=== PATIENT | female | born 1970 | race Caucasian/White ===

== ENCOUNTER 2018-09-16 21:29 | Emergency (ER) | payer OTHER, SELFPAY ==
--- OUTSIDE RECORDS SUMMARY | 2018-09-16 21:32 | XMS REPORT | Clinical Summary ---
:1970 Author Organization [facility] Address [address] [place] [address] Care Team Providers Name Role Phone Himanshu Primary Care Provider Allergies No Known Allergies Medications Medication Sig Dispensed Refills Start Date End Date Status aspirin 325 MG EC Take 325 mg by 0 Active tabletIndications: mouth daily. myocardial infarction prevention Active Problems Problem Noted Date Atrial fibrillation with rapid ventricular response 07/27/2016 Family History Medical History Relation Name Comments Depression Daughter Drug abuse Father Hearing loss Father Heart disease Father Depression Maternal Grandmother Heart disease Mother Miscarriages / Stillbirths Mother Cancer Paternal Aunt Heart disease Paternal Grandmother Cancer Paternal Uncle Depression Paternal Uncle Relation Name Status Comments Daughter Father Maternal Grandmother Mother Paternal Aunt Paternal Grandmother Paternal Uncle Social History Tobacco Use Types Packs/Day Years Used Date Former Smoker Comments: casual smoker 20+ years ago Alcohol Use Drinks/Week oz/Week Comments No Sex Assigned at Date Recorded Not on file Job Start Date Occupation Industry Not on file Not on file Not on file Travel History Travel Start Travel End No recent travel history available. Last Filed Vital Signs Not on file Plan of Treatment Not on file Results Not on fileafter 09/15/2017 Insurance Payer Benefit Plan / Group Subscriber ID Type Phone Address [facility] xxxxxxxxx
[2018-09-16] MEDS ORDERED: cloNIDine HCl 0.1 MG TAB ONE (22:21)
--- NOTE | 2018-09-16 23:49 | ER ---
Nurse's Notes [facility] Name: Holli Desir Age: 47 yrs Sex: Female : 1970 Arrival Date: 09/16/2018 Time: 21:31 Bed 8 Private MD: Addy Reyes Diagnosis: Headache;Otitis media, unspecified, left ear;Essential (primary) hypertension Presentation: 09/16 22:04 Presenting complaint: Patient states: left ear pain, pt c/o pain and redness behind ak1 left ear. Transition of care: patient was not received from another setting of care. Onset of symptoms is unknown. Risk Assessment: Do you want to hurt yourself or someone else? Patient reports no desire to harm self or others. Initial Sepsis Screen: Does the patient meet any 2 criteria? No. Patient's initial sepsis screen is negative. Does the patient have a suspected source of infection? No. Patient's initial sepsis screen is negative. Care prior to arrival: None. 22:04 Method Of Arrival: Ambulatory ak1 22:04 Acuity: ROHINI 4 ak1 Triage Assessment: 22:06 General: Appears uncomfortable, obese, Behavior is calm, cooperative, anxious. Pain: ak1 Complains of pain in left ear. EENT: Reports pain in left ear. Neuro: No deficits noted. Cardiovascular: No deficits noted. Respiratory: No deficits noted. GI: No signs and/or symptoms were reported involving the gastrointestinal system. : No signs and/or symptoms were reported regarding the genitourinary system. Derm: No signs and/or symptoms reported regarding the dermatologic system. Musculoskeletal: No signs and/or symptoms reported regarding the musculoskeletal system. 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 - Social history:: Smoking status: Patient/guardian denies using tobacco. - Ebola Screening: : No symptoms or risks identified at this time. Screenin:07 Abuse screen: Denies threats or abuse. Denies injuries from another. Nutritional ak1 screening: No deficits noted. Tuberculosis screening: No symptoms or risk factors identified. Fall Risk None identified. Assessment: 23:01 Reassessment: Patient appears in no apparent distress at this time. No changes from ak1 previously documented assessment. Patient is alert, oriented x 3, equal unlabored respirations, skin warm/dry/pink. see triage assessment. Vital Signs: 22:06 BP 225 / 110; Pulse 74; Resp 18; Temp 98.2(O); Pulse Ox 99% on R/A; Weight 117.93 kg ak1 (R); Height 5 ft. 4 in. (162.56 cm) (R); Pain 10/10; 23:00 BP 182 / 103; Pulse 65; Resp 17; Pulse Ox 99% on R/A; ak1 23:36 BP 165 / 102; Pulse 69; Resp 18; Pulse Ox 98% on R/A; ak1 22:06 Body Mass Index 44.63 (117.93 kg, 162.56 cm) ak1 ED Course: 21:31 Patient arrived in ED. al2 21:32 Addy Reyes MD is Private Physician. al2 21:51 Felicity Lara FNP-C is [facility]. kb 21:51 Jatin Orozco MD is Attending Physician. kb 21:58 Armida Velásquez, RN is Primary Nurse. ak1 22:05 Triage completed. ak1 22:06 Arm band placed on Patient placed in an exam room, on a stretcher, on pulse oximetry, ak1 Patient notified of wait time. 22:08 Patient has correct armband on for positive identification. Bed in low position. Call ak1 light in reach. Side rails up X 1. Adult w/ patient. Pulse ox on. NIBP on. 22:39 CT completed. Patient moved to CT via wheelchair. Patient moved back from CT. cw1 22:44 CT Head Brain wo Cont In Process Unspecified. EDMS 09/17 00:08 No provider procedures requiring assistance completed. Patient did not have IV access ak1 during this emergency room visit. Administered Medications: 09/16 22:17 Drug: cloNIDine 0.2 mg Route: PO; jd3 22:32 Follow up: Response: No adverse reaction ak1 Outcome: 23:48 Discharge ordered by . kb 09/17 00:09 Discharged to home ambulatory, with family. ak1 Condition: good Discharge instructions given to patient, family, Instructed on discharge instructions, follow up and referral plans. medication usage, safe sex practices, Demonstrated understanding of instructions, follow-up care, medications, Prescriptions given X 1. 00:10 Patient left the ED. ak1 Signatures: Dispatcher [employer] EDMI Felicity Lara, CRESCENCIO MORAP-Rissa Turcios cw1 Armida Velásquez RN RN ak1 Ramakrishna Kessler RN RN dayana Luna, Maribel gregg
--- NOTE | 2018-09-16 23:49 | EDPHYS ---
Physician Documentation [facility] Name: Holli Desir Age: 47 yrs Sex: Female : 1970 Arrival Date: 09/16/2018 Time: 21:31 Bed 8 Private MD: Addy Reyes ED Physician Jatni Orozco HPI: 09/16 23:26 This 47 yrs old Female presents to ER via Ambulatory with complaints of L kb SIDE NECK AND THROAT PAIN. 23:26 The patient presents with pain, moderate. The complaints affect the left ear. Onset: kb The symptoms/episode began/occurred today. Modifying factors: The symptoms are alleviated by nothing, the symptoms are aggravated by touching. Associated signs and symptoms: Pertinent positives: headache, Pertinent negatives: cough, fever, lightheadedness, nausea, rhinorrhea, sinus trouble, shortness of breath, sore throat, tinnitus, vertigo, vomiting. Severity of symptoms: At their worst the symptoms were moderate in the emergency department the symptoms are unchanged. The patient has not experienced similar symptoms in the past. The patient has not recently seen a physician. 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 - Social history:: Smoking status: Patient/guardian denies using tobacco. - Ebola Screening: : No symptoms or risks identified at this time. ROS: 23:23 Constitutional: Negative for fever, chills, and weight loss, Neck: Negative for injury, kb pain, and swelling, Cardiovascular: Negative for chest pain, palpitations, and edema, Respiratory: Negative for shortness of breath, cough, wheezing, and pleuritic chest pain, Abdomen/GI: Negative for abdominal pain, nausea, vomiting, diarrhea, and constipation, Back: Negative for injury and pain, MS/Extremity: Negative for injury and deformity, Skin: Negative for injury, rash, and discoloration. 23:23 ENT: Positive for ear pain. 23:23 Neuro: Positive for headache. Exam: 23:23 Constitutional: This is a well developed, well nourished patient who is awake, alert, kb and in no acute distress. Head/Face: Normocephalic, atraumatic. Neck: Trachea midline, no thyromegaly or masses palpated, and no cervical lymphadenopathy. Supple, full range of motion without nuchal rigidity, or vertebral point tenderness. No Meningismus. Chest/axilla: Normal chest wall appearance and motion. Nontender with no deformity. No lesions are appreciated. Cardiovascular: Regular rate and rhythm with a normal S1 and S2. No gallops, murmurs, or rubs. Normal PMI, no JVD. No pulse deficits. Respiratory: Lungs have equal breath sounds bilaterally, clear to auscultation and percussion. No rales, rhonchi or wheezes noted. No increased work of breathing, no retractions or nasal flaring. Abdomen/GI: Soft, non-tender, with normal bowel sounds. No distension or tympany. No guarding or rebound. No evidence of tenderness throughout. Skin: Warm, dry with normal turgor. Normal color with no rashes, no lesions, and no evidence of cellulitis. MS/ Extremity: Pulses equal, no cyanosis. Neurovascular intact. Full, normal range of motion. Neuro: Awake and alert, GCS 15, oriented to person, place, time, and situation. Cranial nerves II-XII grossly intact. Motor strength 5/5 in all extremities. Sensory grossly intact. Cerebellar exam normal. Normal gait. 23:23 ENT: External ear(s): pain with movement, that is moderate, of the left mastoid area, Ear canal(s): are normal, TM's: bulging, on the left, erythema, that is moderate, on the left. Vital Signs: 22:06 BP 225 / 110; Pulse 74; Resp 18; Temp 98.2(O); Pulse Ox 99% on R/A; Weight 117.93 kg ak1 (R); Height 5 ft. 4 in. (162.56 cm) (R); Pain 10/10; 23:00 BP 182 / 103; Pulse 65; Resp 17; Pulse Ox 99% on R/A; ak1 23:36 BP 165 / 102; Pulse 69; Resp 18; Pulse Ox 98% on R/A; ak1 22:06 Body Mass Index 44.63 (117.93 kg, 162.56 cm) ak1 MDM: 21:51 Patient medically screened. kb 23:25 Data reviewed: vital signs, nurses notes. Data interpreted: Pulse oximetry: on room air kb is 99 %. Interpretation: normal. 23:47 Counseling: I had a detailed discussion with the patient and/or guardian regarding: the kb historical points, exam findings, and any diagnostic results supporting the discharge/admit diagnosis, radiology results, the need for outpatient follow up, a family practitioner, to return to the emergency department if symptoms worsen or persist or if there are any questions or concerns that arise at home. ED course: Pt reports 165/102 is normal blood pressure for her. Educated to keep a bp log and follow up with PCP . 09/16 21:59 Order name: CT Head Brain wo Cont kb 09/16 22:22 Order name: EKG; Complete Time: 22:22 kb 09/16 22:22 Order name: EKG - Nurse/Tech; Complete Time: 22:54 kb Administered Medications: 22:17 Drug: cloNIDine 0.2 mg Route: PO; jd3 22:32 Follow up: Response: No adverse reaction ak1 Disposition: 09/17 01:02 Co-signature as Attending Physician, Jatin Orozco MD. rn Disposition: 09/16/18 23:48 Discharged to Home. Impression: Headache, Otitis media, unspecified, left ear, Essential (primary) hypertension. - Condition is Stable. - Discharge Instructions: Otitis Media, Adult, Grqj-[id number], Hypertension, [id number], General Headache Without Cause, [id number]-pm-[id number]. - Prescriptions for Augmentin 875- 125 mg Oral Tablet - take 1 tablet by ORAL route every 12 hours for 7 days; 14 tablet. - Medication Reconciliation Form, Thank You Letter, Antibiotic Education, Prescription Opioid Use form. - Follow up: Emergency Department; When: As needed; Reason: Worsening of condition. Follow up: Private Physician; When: 2 - 3 days; Reason: Recheck today's complaints, Continuance of care, Re-evaluation by your physician. Signatures: Dispatcher [employer] EDMS Felicity Lara, CRESCENCIO GARZA-Jatin Espino MD MD rn Krenek, Amber, RN RN ak1 Ramakrishna Kessler RN RN jd3 Corrections: (The following items were deleted from the chart) 11/22 23:49 23:48 09/16/2018 23:48 Discharged to Home. Impression: Headache; Otitis media, kb unspecified, left ear. Condition is Stable. Forms are Medication Reconciliation Form, Thank You Letter, Antibiotic Education, Prescription Opioid Use. Follow up: Emergency Department; When: As needed; Reason: Worsening of condition. Follow up: Private Physician; When: 2 - 3 days; Reason: Recheck today's complaints, Continuance of care, Re-evaluation by your physician. kb 09/17 00:10 09/16 23:49 09/16/2018 23:48 Discharged to Home. Impression: Headache; Otitis media, ak1 unspecified, left ear; Essential (primary) hypertension. Condition is Stable. Discharge Instructions: Otitis Media, Adult, Sdhm-hu-Vjpw, General Headache Without Cause, Xfgk-pq-[id number]. Prescriptions for Augmentin 875-125 mg Oral Tablet - take 1 tablet by ORAL route every 12 hours for 7 days; 14 tablet. and Forms are Medication Reconciliation Form, Thank You Letter, Antibiotic Education, Prescription Opioid Use. Follow up: Emergency Department; When: As needed; Reason: Worsening of condition. Follow up: Private Physician; When: 2 - 3 days; Reason: Recheck today's complaints, Continuance of care, Re-evaluation by your physician. kb
[2018-09-17 00:49] VITALS: TEMP 98.2
[2018-09-17 00:51] VITALS: BP 165/102; O2SAT 98
--- NOTE | 2018-09-17 06:13 | EKG ---
Test Date: 2018-09-16 Test Time: 22:48:37 Violin Maker Hand: FLORESITA MEASUREMENT RESULTS: Intervals: Rate: 64 NV: 158 QRSD: 88 QT: 412 QTc: 425 Banks: P: -8 NV: 158 QRS: -4 T: 55 INTERPRETIVE STATEMENTS: Normal sinus rhythm Voltage criteria for left ventricular hypertrophy T wave abnormality, consider lateral ischemia Abnormal ECG Compared to ECG 10/12/2013 06:00:06 Prolonged QT interval no longer present Electronically Signed On 09-17-18 06:12:43 AIRCRAFT BODY REPAIRER by Lewis Ramirez
--- NOTE | 2018-09-17 10:00 | RAD REPORT ---
EXAM DESCRIPTION: CT - Head Brain Wo Cont - 09/17/2018 4:38 am CLINICAL HISTORY: r/o mastoiditis;Headache Ear pain COMPARISON: No comparisons TECHNIQUE: All CT scans are performed using dose optimization technique as appropriate and may inclu de automated exposure control or mA/KV adjustment according to patient size. FINDINGS: No intracranial hemorrhage, hydrocephalus or extra-axial fluid collection.No areas of brai n edema or evidence of midline shift. The paranasal sinuses and mastoids are clear. The calvarium is intact. IMPRESSION: No acute intracranial abnormality.
--- NOTE | 2018-09-17 10:17 | EKG ---
Test Date: 2018-09-16 Test Time: 23:53:57 Special Education Curriculum Specialist: FLORESITA MEASUREMENT RESULTS: Intervals: Rate: 86 WI: 194 QRSD: 112 QT: 418 QTc: 500 [place]: P: 52 WI: 194 QRS: 29 T: 46 INTERPRETIVE STATEMENTS: Normal sinus rhythm Intraventricular conduction delay Prolonged QT Abnormal ECG Compared to ECG 09/16/2018 22:48:37 Intraventricular conduction delaynow present Prolonged QT interval now present Left ventricular hypertrophy no longer present Electronically Signed On 09-17-18 10:16:53 FOOD AND BEVERAGE OUTLETS MANAGER by Lewis Ramirez
== END 2018-09-17 00:10 | disposition home or self-care (01) ==
LOC: ER 21:29
DX: H66.92 Otitis media, unspecified, left ear (principal); I10 Essential (primary) hypertension
CPT/HCPCS: 70450; 93005; 99284

== ENCOUNTER 2020-10-02 08:39 | Emergency (ER) | payer OTHER ==
--- NOTE | 2020-10-02 09:08 | ER ---
Nurse's Notes [facility] Name: Holli Desir Age: 49 yrs Sex: Female : 1970 Arrival Date: 10/02/2020 Time: 08:41 Bed 17 Private MD: Addy Reyes Diagnosis: Rashid's palsy-left facial nerve Presentation: 10/02 08:43 Chief complaint: Patient states: left sided facial droop. Pt states "I noticed my left aa5 eye giving me trouble yesterday but I noticed it today when I was trying to drink out of a straw". Pt denies pain. 08:43 Coronavirus screen: Client denies travel out of the [place] in the last 14 days. At this aa5 time, the client does not indicate any symptoms associated with coronavirus-19. Ebola Screen: Patient negative for fever greater than or equal to 101.5 degrees Fahrenheit, and additional compatible Ebola Virus Disease symptoms. Initial Sepsis Screen: Does the patient meet any 2 criteria? No. Patient's initial sepsis screen is negative. Does the patient have a suspected source of infection? No. Patient's initial sepsis screen is negative. Risk Assessment: Do you want to hurt yourself or someone else? Patient reports no desire to harm self or others. Onset of symptoms was October 02, 2020. 08:43 Acuity: ROHINI 4 aa5 08:43 Method Of Arrival: Ambulatory aa5 Historical: - Allergies: 09:07 No Known Allergies; aa5 - PMHx: 09:07 Diabetes - NIDDM; Hyperlipidemia; Hypertension; CHF; aa5 - PSHx: 09:07 ; aa5 - Immunization history:: Adult Immunizations unknown. - Social history:: Patient/guardian denies using alcohol, street drugs, The patient lives with family, Smoking status: Patient denies any tobacco usage or history of. - Family history:: not pertinent. Screenin:54 Abuse screen: Denies threats or abuse. Nutritional screening: No deficits noted. aa5 Tuberculosis screening: No symptoms or risk factors identified. Fall Risk None identified. Assessment: 08:45 General: Appears comfortable, Behavior is calm, cooperative. Pain: Denies pain. Neuro: aa5 Level of Consciousness is awake, alert, obeys commands, Oriented to person, place, time, situation, Italian Tutor are equal bilaterally Moves all extremities. Gait is steady, Speech is normal, Facial droop on left, Pupils are PERRLA. Cardiovascular: Heart tones S1 S2 present Rhythm is regular. Respiratory: Airway is patent Respiratory effort is even, unlabored, Respiratory pattern is regular, symmetrical. GI: No signs and/or symptoms were reported involving the gastrointestinal system. : No signs and/or symptoms were reported regarding the genitourinary system. EENT: No signs and/or symptoms were reported regarding the EENT system. Derm: Skin is pink, warm \\T\\ dry. Musculoskeletal: Range of motion: intact in all extremities. 10:10 Reassessment: Patient appears in no apparent distress at this time. Patient is alert, ca1 oriented x 3, equal unlabored respirations, skin warm/dry/pink. Vital Signs: 08:45 Pulse 70; Resp 16 S; Temp 98.3(O); Pulse Ox 99% on R/A; Weight 113.4 kg (R); Height 5 aa5 ft. 4 in. (162.56 cm) (R); Pain 0/10; 09:00 BP 161 / 105; aa5 10:10 BP 152 / 89; Pulse 76; Resp 16 S; Pulse Ox 100% on R/A; ca1 08:45 Body Mass Index 42.91 (113.40 kg, 162.56 cm) aa5 09:00 Pt states she has not taken her morning medications yet. aa5 ED Course: 08:41 Patient arrived in ED. ag5 08:41 Addy Reyes MD is Private Physician. ag5 08:43 Arm band placed on Patient placed in an exam room, on a stretcher. aa5 08:43 Patient has correct armband on for positive identification. Bed in low position. aa5 08:45 Fabian Mack MD is Attending Physician. ma2 09:04 Dionna Dawson RN is Primary Nurse. aa5 09:07 Triage completed. aa5 10:11 No provider procedures requiring assistance completed. Patient did not have IV access ca1 during this emergency room visit. Administered Medications: 10:00 Drug: predniSONE 40 mg Route: PO; ca1 10:11 Follow up: Response: Medication administered at discharge. ca1 10:01 Drug: Acyclovir 400 mg Route: PO; ca1 10:11 Follow up: Response: Medication administered at discharge. ca1 Outcome: :07 Discharge ordered by . keturah 10:11 Discharged to home ambulatory. ca1 10:11 Condition: stable 10:11 Discharge instructions given to patient, Instructed on discharge instructions, follow up and referral plans. medication usage, Demonstrated understanding of instructions, follow-up care, medications, Prescriptions given X 3. 10:12 Patient left the ED. ca1 Signatures: Dionna Dawson RN RN aa5 Fabian Mack MD MD ma2 Giovana Arana RN RN ca1 Haris, Zulema 5
--- NOTE | 2020-10-02 09:08 | EDPHYS ---
Physician Documentation [facility] Name: Holli Desir Age: 49 yrs Sex: Female : 1970 Arrival Date: 10/02/2020 Time: 08:41 Bed 17 Private MD: Addy Reyes ED Physician Fabian Mack HPI: 10/02 08:59 This 49 yrs old Female presents to ER via Unassigned with complaints of ma2 Numbness Of Face. 08:59 The patient's problem is reported as facial droop. Onset: The symptoms/episode ma2 began/occurred suddenly, 2 day(s) ago. Duration: The episode is continuous. Associated signs and symptoms: Pertinent negatives: agitation, blurred vision, confusion, diarrhea, dizziness, lightheadedness. Severity of symptoms: At their worst the symptoms were moderate in the emergency department the symptoms are unchanged. The patient has not experienced similar symptoms in the past. Historical: - Allergies: 09:07 No Known Allergies; aa5 - PMHx: 09:07 Diabetes - NIDDM; Hyperlipidemia; Hypertension; CHF; aa5 - PSHx: 09:07 ; aa5 - Immunization history:: Adult Immunizations unknown. - Social history:: Patient/guardian denies using alcohol, street drugs, The patient lives with family, Smoking status: Patient denies any tobacco usage or history of. - Family history:: not pertinent. ROS: 08:59 Constitutional: Negative for fever, chills, and weight loss. ma2 08:59 All other systems are negative. Exam: 08:59 CT study not indicated or reported. Reason for not performing CT: no indication for ct ma2 08:59 Constitutional: This is a well developed, well nourished patient who is awake, alert, and in no acute distress. Head/Face: Normocephalic, atraumatic. has facial droop as detailed in neuroexam Eyes: Pupils equal round and reactive to light, extra-ocular motions intact. Lids and lashes normal. Conjunctiva and sclera are non-icteric and not injected. Cornea within normal limits. Periorbital areas with no swelling, redness, or edema. ENT: Nares patent. No nasal discharge, no septal abnormalities noted. Tympanic membranes are normal and external auditory canals are clear. Oropharynx with no redness, swelling, or masses, exudates, or evidence of obstruction, uvula midline. Mucous membranes moist. Neck: Trachea midline, no thyromegaly or masses palpated, and no cervical lymphadenopathy. Supple, full range of motion without nuchal rigidity, or vertebral point tenderness. No Meningismus. Chest/axilla: Normal chest wall appearance and motion. Nontender with no deformity. No lesions are appreciated. Cardiovascular: Regular rate and rhythm with a normal S1 and S2. No gallops, murmurs, or rubs. Normal PMI, no JVD. No pulse deficits. Respiratory: Lungs have equal breath sounds bilaterally, clear to auscultation and percussion. No rales, rhonchi or wheezes noted. No increased work of breathing, no retractions or nasal flaring. Abdomen/GI: Soft, non-tender, with normal bowel sounds. No distension or tympany. No guarding or rebound. No evidence of tenderness throughout. Skin: Warm, dry with normal turgor. Normal color with no rashes, no lesions, and no evidence of cellulitis. MS/ Extremity: Pulses equal, no cyanosis. Neurovascular intact. Full, normal range of motion. Neuro: Awake and alert, GCS 15, oriented to person, place, time, and situation. Cranial nerves II-XII grossly intact, except facial nerve, patient has left facial paresis with muscle strength are 2/5 on left face, including forehead. she has complete Motor strength 5/5 in all extremities. Sensory grossly intact. Cerebellar exam normal. Normal gait. Psych: Awake, alert, with orientation to person, place and time. Behavior, mood, and affect are within normal limits. 09:03 Neuro: Awake and alert, GCS 15, oriented to person, place, time, and situation. ma2 Cranial nerves II-XII grossly intact. Motor strength 5/5 in all extremities. Sensory grossly intact. Cerebellar exam normal. Normal gait. Vital Signs: 08:45 Pulse 70; Resp 16 S; Temp 98.3(O); Pulse Ox 99% on R/A; Weight 113.4 kg (R); Height 5 aa5 ft. 4 in. (162.56 cm) (R); Pain 0/10; 09:00 BP 161 / 105; aa5 10:10 BP 152 / 89; Pulse 76; Resp 16 S; Pulse Ox 100% on R/A; ca1 08:45 Body Mass Index 42.91 (113.40 kg, 162.56 cm) aa5 09:00 Pt states she has not taken her morning medications yet. aa5 MDM: 08:46 Patient medically screened. ma2 09:03 Differential diagnosis: bells palsy, grade 3. ma2 Administered Medications: 10:00 Drug: predniSONE 40 mg Route: PO; ca1 10:11 Follow up: Response: Medication administered at discharge. ca1 10:01 Drug: Acyclovir 400 mg Route: PO; ca1 10:11 Follow up: Response: Medication administered at discharge. ca1 Disposition: 10/02/20 09:07 Discharged to Home. Impression: Rashid's palsy - left facial nerve . - Condition is Stable. - Discharge Instructions: Rashid Palsy, Adult, Neuropathic Pain. - Prescriptions for Neurontin 300 mg Oral Capsule - take 1 capsule by ORAL route At bedtime; 20 capsule. Acyclovir 400 mg Oral Tablet - take 1 tablet by ORAL route every 8 hours; 30 tablet. Medrol (Saulo) 4 mg Oral Tablets, Dose Pack - take 1 tablet by ORAL route as directed - follow package instructions; 1 packet. - Medication Reconciliation Form, Thank You Letter, Antibiotic Education, Prescription Opioid Use form. - Follow up: Private Physician; When: Tomorrow; Reason: Continuance of care. Signatures: Dionna Dawson, RN RN aa5 Fabian Mack MD MD ma2 Giovana Arana RN RN ca1 Corrections: (The following items were deleted from the chart) 09:06 08:59 Constitutional: This is a well developed, well nourished patient who is awake, ma2 alert, and in no acute distress. Head/Face: Normocephalic, atraumatic. Eyes: Pupils equal round and reactive to light, extra-ocular motions intact. Lids and lashes normal. Conjunctiva and sclera are non-icteric and not injected. Cornea within normal limits. Periorbital areas with no swelling, redness, or edema. ENT: Nares patent. No nasal discharge, no septal abnormalities noted. Tympanic membranes are normal and external auditory canals are clear. Oropharynx with no redness, swelling, or masses, exudates, or evidence of obstruction, uvula midline. Mucous membranes moist. Neck: Trachea midline, no thyromegaly or masses palpated, and no cervical lymphadenopathy. Supple, full range of motion without nuchal rigidity, or vertebral point tenderness. No Meningismus. Chest/axilla: Normal chest wall appearance and motion. Nontender with no deformity. No lesions are appreciated. Cardiovascular: Regular rate and rhythm with a normal S1 and S2. No gallops, murmurs, or rubs. Normal PMI, no JVD. No pulse deficits. Respiratory: Lungs have equal breath sounds bilaterally, clear to auscultation and percussion. No rales, rhonchi or wheezes noted. No increased work of breathing, no retractions or nasal flaring. Abdomen/GI: Soft, non-tender, with normal bowel sounds. No distension or tympany. No guarding or rebound. No evidence of tenderness throughout. Skin: Warm, dry with normal turgor. Normal color with no rashes, no lesions, and no evidence of cellulitis. MS/ Extremity: Pulses equal, no cyanosis. Neurovascular intact. Full, normal range of motion. Neuro: Awake and alert, GCS 15, oriented to person, place, time, and situation. Cranial nerves II-XII grossly intact, except facial nerve. she has complete Motor strength 5/5 in all extremities. Sensory grossly intact. Cerebellar exam normal. Normal gait. Psych: Awake, alert, with orientation to person, place and time. Behavior, mood, and affect are within normal limits. ma2 10:12 09:07 10/02/2020 09:07 Discharged to Home. Impression: Rashid's palsy - left facial nerve ca1 . Condition is Stable. Forms are Medication Reconciliation Form, Thank You Letter, Antibiotic Education, Prescription Opioid Use. Follow up: Private Physician; When: Tomorrow; Reason: Continuance of care. ma2
[2020-10-02] MEDS ORDERED: ACYCLOVIR 400 MG TABLET ONE (10:16)
[2020-10-02] MEDS ORDERED: predniSONE 20 MG TAB ONE (10:17)
--- OUTSIDE RECORDS SUMMARY | 2020-10-02 14:42 | XMS REPORT | Clinical Summary ---
:1970 Author Organization [facility] Address [address] [place] [address] Care Team Providers Name Role Phone Himanshu Primary Care Provider Allergies No Known Allergies Medications Medication Sig Dispensed Refills Start Date End Date Status aspirin 325 MG EC Take 325 mg by 0 Active tabletIndications: mouth daily. myocardial infarction prevention Active Problems Problem Noted Date Atrial fibrillation with rapid ventricular response Family History Medical History Relation Name Comments [...] Assigned at Date Recorded Not on file Last Filed Vital Signs Not on file Plan of Treatment Not on file Results Not on fileafter 10/02/2019 Insurance Payer Benefit Plan / Subscriber ID Effective Dates Phone Addre ss Type Group [facility] [id number] 2015-[facility]
== END 2020-10-02 10:12 | disposition home or self-care (01) ==
LOC: ER 08:39
DX: G51.0 Bell's palsy (principal); I10 Essential (primary) hypertension
CPT/HCPCS: 99283; J7512